=== PATIENT | female | born 1990 | race Caucasian/White ===

== ENCOUNTER 2016-09-10 10:05 | Inpatient (IN) | payer SELFPAY ==
[~2016-09-10] VITALS: Ht 182.9 cm; Wt 133.9 kg
[2016-09-10] MEDS ORDERED: LIDOCAINE 1% / SOD BICARB 8.4% 20 ML VIAL. IJ ONE (10:30)
--- NOTE | 2016-09-10 10:37 | PHYS DOC ---
Past Medical History Past Medical History: No Pertinent History Past Surgical History: Appendectomy Alcohol Use: Rarely Drug Use: Marijuana Adult General Chief Complaint Chief Complaint: ABSCESS HPI HPI Patient is a 25 year old female presents the emergency department stating that she has an abscess in her left upper thigh. She states that she's had these in the past in which they've had to open and drain them. She states she's had this for approximately one week. She states that it's the size of a golf ball. She denies any drainage or discharge coming from the site. She does state she's had some nausea feeling but denies any fever chills or vomiting. Patients tetanus is up to date. Review of Systems Review of Systems Constitutional: Denies fever or chills [] Eyes: Denies change in visual acuity, redness, or eye pain [] HENT: Denies nasal congestion or sore throat [] Respiratory: Denies cough or shortness of breath [] Cardiovascular: No additional information not addressed in HPI [] GI: Denies abdominal pain, nausea, vomiting, bloody stools or diarrhea [] : Denies dysuria or hematuria [] Musculoskeletal: Denies back pain or joint pain [] Integument: Denies rash or skin lesions. C/o abscess to the left upper inner thigh Neurologic: Denies headache, focal weakness or sensory changes [] Endocrine: Denies polyuria or polydipsia [] Current Medications Current Medications Current Medications Medications (Trade) Dose Ordered Sig/Franky Start Time Stop Time Status Last Admin Dose Admin Acetaminophen/ Hydrocodone Bitart (Lortab 5/325) 2 tab 1X ONCE 09/10/16 10:45 09/10/16 10:46 DC 09/10/16 10:46 2 TAB Clindamycin Phosphate 50 ml @ 100 mls/hr 1X ONCE 09/10/16 11:15 09/10/16 11:44 DC 09/10/16 11:47 100 MLS/HR Lidocaine/Sodium Bicarbonate (Buffered Lidocaine 1%) 20 ml 1X ONCE 09/10/16 10:30 09/10/16 10:31 DC 09/10/16 10:39 20 ML Allergies Allergies Allergies Coded Allergies Type Severity Reaction Last Updated Verified morphine Allergy Severe "freak out' 09/10/16 Yes Physical Exam Physical Exam Constitutional: Well developed, well nourished, no acute distress, non-toxic appearance. [] HENT: Normocephalic, atraumatic, bilateral external ears normal, oropharynx moist, no oral exudates, nose normal. [] Eyes: PERRLA, EOMI, conjunctiva normal, no discharge. [] Neck: Normal range of motion, no tenderness, supple, no stridor. [] Cardiovascular:Heart rate regular rhythm, no murmur [] Lungs & Thorax: Bilateral breath sounds clear to auscultation [] Skin: Warm, dry, no erythema, no rash. Golf ball size area that is red, tender without drainage or discharge. Induration noted to the left upper inner thigh. Back: No tenderness Extremities: No tenderness, no cyanosis, no clubbing, ROM intact, no edema. [] Neurologic: Alert and oriented X 3, normal motor function, normal sensory function, no focal deficits noted. [] Psychologic: Affect normal, judgement normal, mood normal. [] Current Patient Data Vital Signs Vital Signs Date Time Temp Pulse Resp B/P (MAP) Pulse Ox O2 Delivery O2 Flow Rate FiO2 09/10/16 10:10 97.6 111 20 99 Room Air 97.6 Lab Values Laboratory Tests Test 09/10/16 11:30 White Blood Count 8.8 x10^3/uL (4.0-11.0) Red Blood Count 4.72 x10^6/uL (3.50-5.40) Hemoglobin 14.2 g/dL (12.0-15.5) Hematocrit 42.0 % (36.0-47.0) Mean Corpuscular Volume 89 fL (79-100) Mean Corpuscular Hemoglobin 30 pg (25-35) Mean Corpuscular Hemoglobin Concent 34 g/dL (31-37) Red Cell Distribution Width 13.4 % (11.5-14.5) Platelet Count 179 x10^3/uL (140-400) Neutrophils (%) (Auto) 66 % (31-73) Lymphocytes (%) (Auto) 23 % (24-48) L Monocytes (%) (Auto) 6 % (0-9) Eosinophils (%) (Auto) 5 % (0-3) H Basophils (%) (Auto) 1 % (0-3) Neutrophils # (Auto) 5.8 x10^3uL (1.8-7.7) Lymphocytes # (Auto) 2.0 x10^3/uL (1.0-4.8) Monocytes # (Auto) 0.5 x10^3/uL (0.0-1.1) Eosinophils # (Auto) 0.4 x10^3/uL (0.0-0.7) Basophils # (Auto) 0.1 x10^3/uL (0.0-0.2) Sodium Level 141 mmol/L (136-145) Potassium Level 4.2 mmol/L (3.5-5.1) Chloride Level 106 mmol/L (98-107) Carbon Dioxide Level 27 mmol/L (21-32) Anion Gap 8 (6-14) Blood Urea Nitrogen 6 mg/dL (7-20) L Creatinine 0.8 mg/dL (0.6-1.0) Estimated GFR (Cockcroft-Gault) 88.9 BUN/Creatinine Ratio 8 (6-20) Glucose Level 103 mg/dL (70-99) H Calcium Level 9.0 mg/dL (8.5-10.1) Total Bilirubin 0.4 mg/dL (0.2-1.0) Aspartate Amino Transferase (AST) 18 U/L (15-37) Alanine Aminotransferase (ALT) 30 U/L (14-59) Alkaline Phosphatase 75 U/L (46-116) Total Protein 7.4 g/dL (6.4-8.2) Albumin 3.4 g/dL (3.4-5.0) Albumin/Globulin Ratio 0.9 (1.0-1.7) L Serum Test, Qualitative Negative (NEG) Laboratory Tests 09/10/16 11:30 Laboratory Tests 09/10/16 11:30 EKG EKG [] Radiology/Procedures Radiology/Procedures [][facility] [address] [place] [address] IMAGING REPORT Signed PATIENT: TROY ARANA ACCOUNT: [id number] : 1990 LOCATION: ER AGE: 25 SEX: F EXAM STATUS: REG ER ORD. PHYSICIAN: RILEY PADRON [employer] REASON: abscess left upper inner thigh PROCEDURE: EXT NON VASC LTD LEFT Ultrasound of the medial superior left thigh 09/10/2016 Clinical history: Focal swelling involving the medial superior left thigh. Concern for possible abscess. Technique: A real-time ultrasound examination of the superior medial left thigh soft tissues in the area of the patient's swelling was performed. Multiple images were obtained. Findings: Edema is seen throughout the visualized soft tissues of the superior medial left thigh. No well-defined fluid collection is seen to suggest evidence of an abscess. Impression: There is no sonographic evidence of an abscess. DICTATED and SIGNED BY: PETER RUBIO MD DATE: 09/10/16 1222 CC: RILEY PADRON APRN; NO PCP; NON,STAFF ~ Course & Med Decision Making Course & Med Decision Making Pertinent Labs and Imaging studies reviewed. (See chart for details) Ultrasound does not show an abscess. Spoke with Dr. powers in regards to patient being admitted into the hospital placed on clindamycin. He agrees at this time with the treatment option as the patient states that she cannot be compliant with medication regimen at home. [] Dragon Disclaimer Dragon Disclaimer This electronic medical record was generated, in whole or in part, using a voice recognition dictation system. Departure Departure Impression: Primary Impression: Cellulitis of left thigh Admitting Physician: Sherice Powers Condition: STABLE Incision and Drainage Incision and Drainage : Site: left upper inner thigh Blade Size: 11 I & D Procedure: betadine prep, sterile drapes applied Progress Left upper inner thigh injected with 5 ml 1% lidocaine buffered, Site was cleaned with betadine, incised with #11 blade with yellow chunks noted. Patient states she feels as though the area is deeper,. ultrasound ordered. RILEY PADRON APRN Sep 10, 2016 10:37
[2016-09-10] MEDS ORDERED: HYDROcodone/APAP 5/325MG 1 TAB TABLET PO ONE (10:45)
[2016-09-10] MEDS ORDERED: CLINDAMYCIN 600MG PREMIX 50 ML IV ONE (11:15)
[2016-09-10 11:47] LABS: BASO # 0.1 x10^3/uL (0.0-0.2); BASO % 1 % (0-3); EOS % 5 % (0-3); HEMOGLOBIN 14.2 g/dL (12.0-15.5); LYMPH % 23 % (24-48); MEAN CORPUSCULAR HEMOGLOBIN 30 pg (25-35); MEAN CORPUSCULAR HGB CONC 34 g/dL (31-37); MEAN CORPUSCULAR VOLUME 89 fL (79-100); MONO % 6 % (0-9); NEUT % 66 % (31-73); PLATELET COUNT 179 x10^3/uL (140-400); RED BLOOD COUNT 4.72 x10^6/uL (3.50-5.40); RED CELL DISTRIBUTION WIDTH 13.4 % (11.5-14.5); WHITE BLOOD COUNT 8.8 x10^3/uL (4.0-11.0)
[2016-09-10 11:51] LABS: CREATININE 0.8 mg/dL (0.6-1.0); GFR 88.9; POTASSIUM 4.2 mmol/L (3.5-5.1)
[2016-09-10 11:57] LABS: ALBUMIN 3.4 g/dL (3.4-5.0); ALBUMIN/GLOBULIN RATIO 0.9 (1.0-1.7); TOTAL BILIRUBIN 0.4 mg/dL (0.2-1.0); TOTAL PROTEIN 7.4 g/dL (6.4-8.2)
[2016-09-10 12:05] LABS: NEG OBC SER NEG; POS OBC SER POS
--- NOTE | 2016-09-10 12:27 | RAD ---
Ultrasound of the medial superior left thigh 09/10/2016 Clinical history: Focal swelling involving the medial superior left thigh. Concern for possible abscess. Technique: A real-time ultrasound examination of the superior medial left thigh soft tissues in the area of the patient's swelling was performed. Multiple images were obtained. Findings: Edema is seen throughout the visualized soft tissues of the superior medial left thigh. No well-defined fluid collection is seen to suggest evidence of an abscess. Impression: There is no sonographic evidence of an abscess.
--- NOTE | 2016-09-10 13:23 | ACF ---
Admission Forms Criteria CELLULITIS Clinical Indications for Admission to Inpatient Care (Place 'X' for any and all applicable criteria): Admission is indicated for ANY ONE of the following(1)(2)(3)(4)(5): [ ]I. Limb-threatening infection [ ]II. High-risk comorbid condition as indicated by ANY ONE of the following: [ ]a) Uncontrolled diabetes (eg, HbA1c greater than 10% (0.1)) [ ]b) Cirrhosis [ ]c) Neutropenia [ ]d) Asplenia [ ]e) Immunosuppression [ ]f) Symptomatic heart failure [ ]III. Failure of outpatient therapy as indicated by ALL of the following: [ ]a) Progression or no improvement after adequate trial (minimum of 48 hours, with longer period for stable lower extremity infection) [ ]b) Adequate antibiotic regimen as indicated by use of ANY ONE of the following: [ ]i) First-generation cephalosporin (e.g., cephalexin) [ ]ii) Antistaphylococcal penicillin (e.g., dicloxacillin) [ ]iii) Penicillin-allergic patient regimen (clindamycin, extended-spectrum fluoroquinolone, or doxycycline) [ ]iv) Resistant organism (eg, methicillin-resistant Staphylococcus aureus) regimen (6) [ ]c) Outpatient intravenous therapy regimen is not appropriate due to ANY ONE of the following. (7)(8)(9)(10): [ ]i) It was tried and was not successful (eg, progression of infection). [ ]ii) It is not available or cannot be arranged in a clinically appropriate time frame (e.g., the next day). [ ]iii) Clinical presentation (eg, acuity of infection, rapidity of progression, confirmed or suspected bacteremia) is judged to require ALL of the following: [ ]1) Immediate initiation of intravenous therapy ( eg, cannot wait for next day) [ ]2) Intensity of patient monitoring and observation (eg, vital sign measurement, checks for infection progression) that cannot be provided at other than inpatient level of care [ ]IV. Mental status changes [ ]V. Bacteremia [ ]. Hemodynamic instability [ ]VII. Suspected necrotizing soft tissue infection (e.g., gas in tissue)(11)( 12) [ ]VIII. Orbital infection (13)(14) [X]IX. Associated surgical procedure (e.g., abscess drainage, debridement) not amenable to outpatient, emergency department, or observation care [ ]X. Cutaneous gangrene [ ]XI. High fever (temperature greater than 39.5 degrees C (103.1 degrees F) (oral)) not responsive to outpatient, emergency department, or observation care therapy [ ]XIII. Inpatient admission required rather than observation care (Also use Cellulitis: Observation Care as appropriate) because of ANY ONE of the following : [ ]a) Periorbital or perineal infection that is severe or worsening [ ]b) Severe pain requiring acute inpatient management [ ]c) IV fluid to replace significant ongoing (e.g., for over 24 hours) losses (greater than 3L/m2 per day) [ ]d) Compartment syndrome monitoring (17) [ ]e) Strict or protective (eg, laminar flow) isolation [ ]f) Urgent debridement or skin grafting [ ]g) Bone or joint debridement [ ]h) Immediate inpatient surgery [ ]i) Other condition, treatment or monitoring requiring inpatient admission Extended stay beyond goal length of stay may be needed for (1)(18): [ ]a) Necrotizing soft tissue infection or fasciitis [ ]b) Gram-negative infection [ ]c) Methicillin-resistant Staphylococcal aureus (MRSA) infection [ ]d) Peripheral venous insufficiency with cellulitis [ ]e) Extensive edema [ ]f) Sepsis or continued Hemodynamic instability [ ]g) Continued high fever or mental status change [ ]h) Bacteremia [ ]i) Active serious comorbid conditions ( eg, heart failure, renal insufficiency) The original [employer] content created by [employer] has been revised. The portions of the content which have been revised are identified through the use of italic text or in bold, and [facility] has neither reviewed nor approved the modified material. All other unmodified content is copyright [facility] Please see references footnoted in the original [facility] edition 2016 Admission Criteria Met?: Yes MARAL BRIGHT Sep 10, 2016 13:23
[2016-09-10 14:00] VITALS: BP 128/62
[2016-09-10 15:00] VITALS: BP 128/62
[2016-09-10] MEDS: HYDROcodone/APAP 5/325MG 1 TAB TABLET PO PRN ×3 (15:35→23:49)
--- NOTE | 2016-09-10 17:46 | PDOC1 ---
History and Physical Date of Admission Date of Admission DATE: 09/10/16 TIME: 17:42 Identification/Chief Complaint Chief Complaint groin pain Problems: Source Source: Chart review, Patient History of Present Illness History of Present Illness Ms. Santo, is a 25 year old female, History of hidranitis suppurativa, admit from the the emergency department for small lesions and minimal sized abscess in her left upper thigh. History of prior, worse now in the hot weather, she feels too painful to walk, unable to sleep last night, pain 7/10 Patients tetanus is up to date. Past Medical History Past Medical History hidranitis Pulmonary: No pertinent hx GI: No pertinent hx Heme/Onc: No pertinent hx Hepatobiliary: No pertinent hx Psych: No pertinent hx Rheumatologic: No pertinent hx Family History Family History: No Significant Social History Smoke: <1 pack per day ALCOHOL: rare Drugs: None Current Problem List Problem List Problems Medical Problems: (1) Cellulitis of left thigh Status: Acute Problems: Current Medications Current Medications Current Medications Lidocaine/Sodium Bicarbonate (Buffered Lidocaine 1%) 20 ml 1X ONCE IJ Last administered on 09/10/16 10:39; Start 09/10/16 at 10:30; Stop 09/10/16 at 10:31 ; Status DC Acetaminophen/ Hydrocodone Bitart (Lortab 5/325) 2 tab 1X ONCE PO Last administered on 09/10/16 10:46; Start 09/10/16 at 10:45; Stop 09/10/16 at 10:46 ; Status DC Clindamycin Phosphate 50 ml @ 100 mls/hr 1X ONCE IV Last administered on 09/10 11:47; Start 09/10/16 at 11:15; Stop 09/10/16 at 11:44; Status DC Clindamycin Phosphate 50 ml @ 100 mls/hr Q8HRS IV ; Start 09/10/16 at 22:00 Acetaminophen/ Hydrocodone Bitart (Lortab 5/325) 1 tab Q4HRS PRN PO pain Last administered on 09/10/16 15:35; Start 09/10/16 at 13:00 Lidocaine (Lidoderm) 1 patch DAILY TD ; Start 09/11/16 at 21:00 Allergies Allergies: Coded Allergies: morphine (Verified Allergy, Severe, "freak out', 09/10/16) ROS General: No: Chills, Night Sweats, Fatigue, Malaise, Appetite, Other PSYCHOLOGICAL ROS: No: Anxiety, Behavioral Disorder, Concentration difficultie , Decreased libido, Depression, Disorientation, Hallucinations, Hostility, Irritablity, Memory difficulties, Mood Swings, Obsessive thoughts, Physical abuse, Sexual abuse, Sleep disturbances, Suicidal ideation, Other Eyes: No Blurry vision, No Decreased vision, No Double vision, No Dry eyes, No Excessive tearing, No Eye Pain, No Itchy Eyes, No Loss of vision, No Photophobia , No Scotomata, No Uses contacts, No Uses glasses, No Other HEENT: No: Heacaches, Visual Changes, Hearing change, Nasal congestion, Nasal discharge, Oral lesions, Sinus pain, Sore Throat, Epistaxis, Sneezing, Snoring, Tinnitus, Vertigo, Vocal changes, Other ALLERGY AND IMMUNOLOGY: No: Hives, Insect Bite Sensitivity, Itchy/Watery Eyes, Nasal Congestion, Post Nasal Drip, Seasonal Allergies, Other Cardiovascular: No Chest Pain, No Palpitations, No Orthopnea, No Paroxysmal Noc. Dyspnea, No Edema, No Lt Headedness, No Other Gastrointestinal: No Nausea, No Vomiting, No Abdominal Pain, No Diarrhea, No Constipation, No Melena, No Hematochezia, No Other Genitourinary: No Dysuria, No Frequency, No Incontinence, No Hematuria, No Retention, No Discharge, No Urgency, No Pain, No Flank Pain, No Other, No , No , No , No , No , No , No Skin: Yes Hair Changes, Yes Rash, Yes Skin Lesion Changes, Yes Acne, No Dry Skin, No Eczema, No Lumps, No Mole Changes, No Mottling, No Nail Changes, No Pruritus, No Other Physical Exam General: Alert, Oriented X3, Cooperative HEENT: Atraumatic, PERRLA Lungs: Clear to auscultation Abdomen: Normal bowel sounds, Soft Extremities: No clubbing, No edema Skin: Other (small hidranitus bumps to left groin, min abcess palpable) Neuro: Normal speech, Normal tone Vitals Vitals Vital Signs Date Time Temp Pulse Resp B/P (MAP) Pulse Ox O2 Delivery O2 Flow Rate FiO2 09/10/16 17:29 98 Room Air 09/10/16 15:00 98.3 85 18 128/62 (84) 98.3 Labs Labs Laboratory Tests Test 09/10/16 11:30 White Blood Count 8.8 x10^3/uL (4.0-11.0) Red Blood Count 4.72 x10^6/uL (3.50-5.40) Hemoglobin 14.2 g/dL (12.0-15.5) Hematocrit 42.0 % (36.0-47.0) Mean Corpuscular Volume 89 fL (79-100) Mean Corpuscular Hemoglobin 30 pg (25-35) Mean Corpuscular Hemoglobin Concent 34 g/dL (31-37) Red Cell Distribution Width 13.4 % (11.5-14.5) Platelet Count 179 x10^3/uL (140-400) Neutrophils (%) (Auto) 66 % (31-73) Lymphocytes (%) (Auto) 23 % (24-48) Monocytes (%) (Auto) 6 % (0-9) Eosinophils (%) (Auto) 5 % (0-3) Basophils (%) (Auto) 1 % (0-3) Neutrophils # (Auto) 5.8 x10^3uL (1.8-7.7) Lymphocytes # (Auto) 2.0 x10^3/uL (1.0-4.8) Monocytes # (Auto) 0.5 x10^3/uL (0.0-1.1) Eosinophils # (Auto) 0.4 x10^3/uL (0.0-0.7) Basophils # (Auto) 0.1 x10^3/uL (0.0-0.2) Sodium Level 141 mmol/L (136-145) Potassium Level 4.2 mmol/L (3.5-5.1) Chloride Level 106 mmol/L (98-107) Carbon Dioxide Level 27 mmol/L (21-32) Anion Gap 8 (6-14) Blood Urea Nitrogen 6 mg/dL (7-20) Creatinine 0.8 mg/dL (0.6-1.0) Estimated GFR (Cockcroft-Gault) 88.9 BUN/Creatinine Ratio 8 (6-20) Glucose Level 103 mg/dL (70-99) Calcium Level 9.0 mg/dL (8.5-10.1) Total Bilirubin 0.4 mg/dL (0.2-1.0) Aspartate Amino Transf (AST/SGOT) 18 U/L (15-37) Alanine Aminotransferase (ALT/SGPT) 30 U/L (14-59) Alkaline Phosphatase 75 U/L (46-116) Total Protein 7.4 g/dL (6.4-8.2) Albumin 3.4 g/dL (3.4-5.0) Albumin/Globulin Ratio 0.9 (1.0-1.7) Serum Test, Qualitative Negative (NEG) Laboratory Tests Test 09/10/16 11:30 White Blood Count 8.8 x10^3/uL (4.0-11.0) Red Blood Count 4.72 x10^6/uL (3.50-5.40) Hemoglobin 14.2 g/dL (12.0-15.5) Hematocrit 42.0 % (36.0-47.0) Mean Corpuscular Volume 89 fL (79-100) Mean Corpuscular Hemoglobin 30 pg (25-35) Mean Corpuscular Hemoglobin Concent 34 g/dL (31-37) Red Cell Distribution Width 13.4 % (11.5-14.5) Platelet Count 179 x10^3/uL (140-400) Neutrophils (%) (Auto) 66 % (31-73) Lymphocytes (%) (Auto) 23 % (24-48) Monocytes (%) (Auto) 6 % (0-9) Eosinophils (%) (Auto) 5 % (0-3) Basophils (%) (Auto) 1 % (0-3) Neutrophils # (Auto) 5.8 x10^3uL (1.8-7.7) Lymphocytes # (Auto) 2.0 x10^3/uL (1.0-4.8) Monocytes # (Auto) 0.5 x10^3/uL (0.0-1.1) Eosinophils # (Auto) 0.4 x10^3/uL (0.0-0.7) Basophils # (Auto) 0.1 x10^3/uL (0.0-0.2) Sodium Level 141 mmol/L (136-145) Potassium Level 4.2 mmol/L (3.5-5.1) Chloride Level 106 mmol/L (98-107) Carbon Dioxide Level 27 mmol/L (21-32) Anion Gap 8 (6-14) Blood Urea Nitrogen 6 mg/dL (7-20) Creatinine 0.8 mg/dL (0.6-1.0) Estimated GFR (Cockcroft-Gault) 88.9 BUN/Creatinine Ratio 8 (6-20) Glucose Level 103 mg/dL (70-99) Calcium Level 9.0 mg/dL (8.5-10.1) Total Bilirubin 0.4 mg/dL (0.2-1.0) Aspartate Amino Transf (AST/SGOT) 18 U/L (15-37) Alanine Aminotransferase (ALT/SGPT) 30 U/L (14-59) Alkaline Phosphatase 75 U/L (46-116) Total Protein 7.4 g/dL (6.4-8.2) Albumin 3.4 g/dL (3.4-5.0) Albumin/Globulin Ratio 0.9 (1.0-1.7) Serum Test, Qualitative Negative (NEG) VTE Prophylaxis Ordered VTE Prophylaxis Devices: No VTE Pharmacological Prophylaxi: No Assessment/Plan Assessment/Plan groin abcess concern for cellulitis, clinda obesity, BMI 39 tobaccoism, gum JARRETT BACK MD Sep 10, 2016 17:46
[2016-09-10 19:56] VITALS: BP 131/63
[2016-09-10] MEDS ORDERED: LIDOCAINE (700MG/PATCH) PATCH. TD SCH (21:00)
[2016-09-10] MEDS: NICOTINE POLACRILEX 2MG GUM PACKAGE of 12. BC PRN (21:55)
[2016-09-10] MEDS: CLINDAMYCIN 600MG PREMIX 50 ML IV SCH (21:55)
[2016-09-10 23:48] VITALS: BP 112/55
[2016-09-11] MEDS: HYDROcodone/APAP 5/325MG 1 TAB TABLET PO PRN ×5 (04:36→21:42)
[2016-09-11 04:45] LABS: BASO # 0.1 x10^3/uL (0.0-0.2); BASO % 1 % (0-3); EOS % 7 % (0-3); HEMATOCRIT 41.4 % (36.0-47.0); HEMOGLOBIN 13.6 g/dL (12.0-15.5); LYMPH # 3.3 x10^3/uL (1.0-4.8); LYMPH % 35 % (24-48); MEAN CORPUSCULAR HEMOGLOBIN 29 pg (25-35); MEAN CORPUSCULAR HGB CONC 33 g/dL (31-37); MEAN CORPUSCULAR VOLUME 89 fL (79-100); MONO % 7 % (0-9); NEUT % 50 % (31-73); PLATELET COUNT 182 x10^3/uL (140-400); RED BLOOD COUNT 4.65 x10^6/uL (3.50-5.40); RED CELL DISTRIBUTION WIDTH 13.3 % (11.5-14.5); WHITE BLOOD COUNT 9.3 x10^3/uL (4.0-11.0)
[2016-09-11 05:05] LABS: CALCIUM 8.7 mg/dL (8.5-10.1); CREATININE 0.8 mg/dL (0.6-1.0); GFR 88.9; POTASSIUM 3.6 mmol/L (3.5-5.1)
[2016-09-11] MEDS: CLINDAMYCIN 600MG PREMIX 50 ML IV SCH ×3 (05:55→21:41)
[2016-09-11 07:00] VITALS: BP 121/59
--- NOTE | 2016-09-11 10:07 | PDOC ---
PROGRESS NOTES Chief Complaint Chief Complaint groin abcess, minimal in size, unable to be lanced in the ER early cellulitis of groin area, on clindamycin obesity, BMI 39 tobaccoism, History of Present Illness History of Present Illness still having a lot of pain, she feels the small swollen areas are now more painful I will consult Gen surg to see if they can carmen or express to promote healing, ER staff was unable Vitals Vitals Vital Signs Date Time Temp Pulse Resp B/P (MAP) Pulse Ox O2 Delivery O2 Flow Rate FiO2 09/11/16 08:19 18 95 Room Air 09/11/16 07:00 97.7 81 121/59 (79) 97.7 Physical Exam General: Alert, Oriented X3, Cooperative Abdomen: Normal bowel sounds, Soft Extremities: No clubbing, No edema Skin: Other (small hidranitus bumps to left groin, min abcess palpable) Labs LABS Laboratory Tests Test 09/10/16 11:30 09/11/16 03:35 White Blood Count 8.8 x10^3/uL (4.0-11.0) 9.3 x10^3/uL (4.0-11.0) Red Blood Count 4.72 x10^6/uL (3.50-5.40) 4.65 x10^6/uL (3.50-5.40) Hemoglobin 14.2 g/dL (12.0-15.5) 13.6 g/dL (12.0-15.5) Hematocrit 42.0 % (36.0-47.0) 41.4 % (36.0-47.0) Mean Corpuscular Volume 89 fL (79-100) 89 fL (79-100) Mean Corpuscular Hemoglobin 30 pg (25-35) 29 pg (25-35) Mean Corpuscular Hemoglobin Concent 34 g/dL (31-37) 33 g/dL (31-37) Red Cell Distribution Width 13.4 % (11.5-14.5) 13.3 % (11.5-14.5) Platelet Count 179 x10^3/uL (140-400) 182 x10^3/uL (140-400) Neutrophils (%) (Auto) 66 % (31-73) 50 % (31-73) Lymphocytes (%) (Auto) 23 % (24-48) 35 % (24-48) Monocytes (%) (Auto) 6 % (0-9) 7 % (0-9) Eosinophils (%) (Auto) 5 % (0-3) 7 % (0-3) Basophils (%) (Auto) 1 % (0-3) 1 % (0-3) Neutrophils # (Auto) 5.8 x10^3uL (1.8-7.7) 4.6 x10^3uL (1.8-7.7) Lymphocytes # (Auto) 2.0 x10^3/uL (1.0-4.8) 3.3 x10^3/uL (1.0-4.8) Monocytes # (Auto) 0.5 x10^3/uL (0.0-1.1) 0.7 x10^3/uL (0.0-1.1) Eosinophils # (Auto) 0.4 x10^3/uL (0.0-0.7) 0.7 x10^3/uL (0.0-0.7) Basophils # (Auto) 0.1 x10^3/uL (0.0-0.2) 0.1 x10^3/uL (0.0-0.2) Sodium Level 141 mmol/L (136-145) 140 mmol/L (136-145) Potassium Level 4.2 mmol/L (3.5-5.1) 3.6 mmol/L (3.5-5.1) Chloride Level 106 mmol/L (98-107) 106 mmol/L (98-107) Carbon Dioxide Level 27 mmol/L (21-32) 25 mmol/L (21-32) Anion Gap 8 (6-14) 9 (6-14) Blood Urea Nitrogen 6 mg/dL (7-20) 9 mg/dL (7-20) Creatinine 0.8 mg/dL (0.6-1.0) 0.8 mg/dL (0.6-1.0) Estimated GFR (Cockcroft-Gault) 88.9 88.9 BUN/Creatinine Ratio 8 (6-20) Glucose Level 103 mg/dL (70-99) 120 mg/dL (70-99) Calcium Level 9.0 mg/dL (8.5-10.1) 8.7 mg/dL (8.5-10.1) Total Bilirubin 0.4 mg/dL (0.2-1.0) Aspartate Amino Transf (AST/SGOT) 18 U/L (15-37) Alanine Aminotransferase (ALT/SGPT) 30 U/L (14-59) Alkaline Phosphatase 75 U/L (46-116) Total Protein 7.4 g/dL (6.4-8.2) Albumin 3.4 g/dL (3.4-5.0) Albumin/Globulin Ratio 0.9 (1.0-1.7) Serum Test, Qualitative Negative (NEG) Assessment and Plan Assessmemt and Plan Problems Medical Problems: (1) Cellulitis of left thigh Status: Acute Problems: Comment Review of Relevant I have reviewed the following items yaya (where applicable) has been applied. Labs Laboratory Tests Test 09/10/16 11:30 09/11/16 03:35 White Blood Count 8.8 x10^3/uL (4.0-11.0) 9.3 x10^3/uL (4.0-11.0) Red Blood Count 4.72 x10^6/uL (3.50-5.40) 4.65 x10^6/uL (3.50-5.40) Hemoglobin 14.2 g/dL (12.0-15.5) 13.6 g/dL (12.0-15.5) Hematocrit 42.0 % (36.0-47.0) 41.4 % (36.0-47.0) Mean Corpuscular Volume 89 fL (79-100) 89 fL (79-100) Mean Corpuscular Hemoglobin 30 pg (25-35) 29 pg (25-35) Mean Corpuscular Hemoglobin Concent 34 g/dL (31-37) 33 g/dL (31-37) Red Cell Distribution Width 13.4 % (11.5-14.5) 13.3 % (11.5-14.5) Platelet Count 179 x10^3/uL (140-400) 182 x10^3/uL (140-400) Neutrophils (%) (Auto) 66 % (31-73) 50 % (31-73) Lymphocytes (%) (Auto) 23 % (24-48) 35 % (24-48) Monocytes (%) (Auto) 6 % (0-9) 7 % (0-9) Eosinophils (%) (Auto) 5 % (0-3) 7 % (0-3) Basophils (%) (Auto) 1 % (0-3) 1 % (0-3) Neutrophils # (Auto) 5.8 x10^3uL (1.8-7.7) 4.6 x10^3uL (1.8-7.7) Lymphocytes # (Auto) 2.0 x10^3/uL (1.0-4.8) 3.3 x10^3/uL (1.0-4.8) Monocytes # (Auto) 0.5 x10^3/uL (0.0-1.1) 0.7 x10^3/uL (0.0-1.1) Eosinophils # (Auto) 0.4 x10^3/uL (0.0-0.7) 0.7 x10^3/uL (0.0-0.7) Basophils # (Auto) 0.1 x10^3/uL (0.0-0.2) 0.1 x10^3/uL (0.0-0.2) Sodium Level 141 mmol/L (136-145) 140 mmol/L (136-145) Potassium Level 4.2 mmol/L (3.5-5.1) 3.6 mmol/L (3.5-5.1) Chloride Level 106 mmol/L (98-107) 106 mmol/L (98-107) Carbon Dioxide Level 27 mmol/L (21-32) 25 mmol/L (21-32) Anion Gap 8 (6-14) 9 (6-14) Blood Urea Nitrogen 6 mg/dL (7-20) 9 mg/dL (7-20) Creatinine 0.8 mg/dL (0.6-1.0) 0.8 mg/dL (0.6-1.0) Estimated GFR (Cockcroft-Gault) 88.9 88.9 BUN/Creatinine Ratio 8 (6-20) Glucose Level 103 mg/dL (70-99) 120 mg/dL (70-99) Calcium Level 9.0 mg/dL (8.5-10.1) 8.7 mg/dL (8.5-10.1) Total Bilirubin 0.4 mg/dL (0.2-1.0) Aspartate Amino Transf (AST/SGOT) 18 U/L (15-37) Alanine Aminotransferase (ALT/SGPT) 30 U/L (14-59) Alkaline Phosphatase 75 U/L (46-116) Total Protein 7.4 g/dL (6.4-8.2) Albumin 3.4 g/dL (3.4-5.0) Albumin/Globulin Ratio 0.9 (1.0-1.7) Serum Test, Qualitative Negative (NEG) Laboratory Tests Test 09/10/16 11:30 09/11/16 03:35 White Blood Count 8.8 x10^3/uL (4.0-11.0) 9.3 x10^3/uL (4.0-11.0) Red Blood Count 4.72 x10^6/uL (3.50-5.40) 4.65 x10^6/uL (3.50-5.40) Hemoglobin 14.2 g/dL (12.0-15.5) 13.6 g/dL (12.0-15.5) Hematocrit 42.0 % (36.0-47.0) 41.4 % (36.0-47.0) Mean Corpuscular Volume 89 fL (79-100) 89 fL (79-100) Mean Corpuscular Hemoglobin 30 pg (25-35) 29 pg (25-35) Mean Corpuscular Hemoglobin Concent 34 g/dL (31-37) 33 g/dL (31-37) Red Cell Distribution Width 13.4 % (11.5-14.5) 13.3 % (11.5-14.5) Platelet Count 179 x10^3/uL (140-400) 182 x10^3/uL (140-400) Neutrophils (%) (Auto) 66 % (31-73) 50 % (31-73) Lymphocytes (%) (Auto) 23 % (24-48) 35 % (24-48) Monocytes (%) (Auto) 6 % (0-9) 7 % (0-9) Eosinophils (%) (Auto) 5 % (0-3) 7 % (0-3) Basophils (%) (Auto) 1 % (0-3) 1 % (0-3) Neutrophils # (Auto) 5.8 x10^3uL (1.8-7.7) 4.6 x10^3uL (1.8-7.7) Lymphocytes # (Auto) 2.0 x10^3/uL (1.0-4.8) 3.3 x10^3/uL (1.0-4.8) Monocytes # (Auto) 0.5 x10^3/uL (0.0-1.1) 0.7 x10^3/uL (0.0-1.1) Eosinophils # (Auto) 0.4 x10^3/uL (0.0-0.7) 0.7 x10^3/uL (0.0-0.7) Basophils # (Auto) 0.1 x10^3/uL (0.0-0.2) 0.1 x10^3/uL (0.0-0.2) Sodium Level 141 mmol/L (136-145) 140 mmol/L (136-145) Potassium Level 4.2 mmol/L (3.5-5.1) 3.6 mmol/L (3.5-5.1) Chloride Level 106 mmol/L (98-107) 106 mmol/L (98-107) Carbon Dioxide Level 27 mmol/L (21-32) 25 mmol/L (21-32) Anion Gap 8 (6-14) 9 (6-14) Blood Urea Nitrogen 6 mg/dL (7-20) 9 mg/dL (7-20) Creatinine 0.8 mg/dL (0.6-1.0) 0.8 mg/dL (0.6-1.0) Estimated GFR (Cockcroft-Gault) 88.9 88.9 BUN/Creatinine Ratio 8 (6-20) Glucose Level 103 mg/dL (70-99) 120 mg/dL (70-99) Calcium Level 9.0 mg/dL (8.5-10.1) 8.7 mg/dL (8.5-10.1) Total Bilirubin 0.4 mg/dL (0.2-1.0) Aspartate Amino Transf (AST/SGOT) 18 U/L (15-37) Alanine Aminotransferase (ALT/SGPT) 30 U/L (14-59) Alkaline Phosphatase 75 U/L (46-116) Total Protein 7.4 g/dL (6.4-8.2) Albumin 3.4 g/dL (3.4-5.0) Albumin/Globulin Ratio 0.9 (1.0-1.7) Serum Test, Qualitative Negative (NEG) Medications Current Medications Lidocaine/Sodium Bicarbonate (Buffered Lidocaine 1%) 20 ml 1X ONCE IJ Last administered on 09/10/16 10:39; Start 09/10/16 at 10:30; Stop 09/10/16 at 10:31 ; Status DC Acetaminophen/ Hydrocodone Bitart (Lortab 5/325) 2 tab 1X ONCE PO Last administered on 09/10/16 10:46; Start 09/10/16 at 10:45; Stop 09/10/16 at 10:46 ; Status DC Clindamycin Phosphate 50 ml @ 100 mls/hr 1X ONCE IV Last administered on 09/10 11:47; Start 09/10/16 at 11:15; Stop 09/10/16 at 11:44; Status DC Clindamycin Phosphate 50 ml @ 100 mls/hr Q8HRS IV Last administered on 05:55; Start 09/10/16 at 22:00 Acetaminophen/ Hydrocodone Bitart (Lortab 5/325) 1 tab Q4HRS PRN PO pain Last administered on 09/11/16 08:19; Start 09/10/16 at 13:00 Lidocaine (Lidoderm) 1 patch DAILY TD ; Start 09/11/16 at 21:00; Stop 09/11/16 at 21:00; Status DC Nicotine Polacrilex (Nicorette Gum) 1 each PRN Q1HR PRN BC SMOKING CESSATION Last administered on 09/10/16 21:55; Start 09/10/16 at 17:45 Lidocaine (Lidoderm) 1 patch QHS TD Last administered on 09/10/16 21:56; Start 09/10/16 at 21:00 Vitals/I & O Vital Sign - Last 24 Hours 09/10/16 09/10/16 09/10/16 09/10/16 10:10 13:38 14:00 14:05 Temp 97.6 98.3 97.6 98.3 Pulse 111 85 85 Resp 20 14 18 B/P (MAP) 126/54 (78) 128/62 (84) Pulse Ox 99 98 98 O2 Delivery Room Air Room Air Room Air Room Air 09/10/16 09/10/16 09/10/16 09/10/16 15:00 15:35 19:52 19:56 Temp 98.3 98.2 98.3 98.2 Pulse 85 96 Resp 18 18 18 B/P (MAP) 128/62 (84) 131/63 (85) Pulse Ox 98 98 98 97 O2 Delivery Room Air Room Air Room Air Room Air 09/10/16 09/10/16 09/10/16 09/10/16 20:00 20:52 23:48 23:49 Temp 98.5 98.5 Pulse 94 Resp 18 18 B/P (MAP) 112/55 (74) Pulse Ox 96 98 96 O2 Delivery Room Air Room Air Room Air 09/11/16 09/11/16 09/11/16 09/11/16 00:49 03:10 04:36 05:36 Resp 20 20 Pulse Ox 96 O2 Delivery Room Air Room Air Room Air 09/11/16 09/11/16 09/11/16 07:00 08:00 08:19 Temp 97.7 97.7 Pulse 81 Resp 18 18 B/P (MAP) 121/59 (79) Pulse Ox 95 95 O2 Delivery Room Air Room Air Room Air Intake and Output 09/10/16 09/10/16 09/11/16 15:00 23:00 07:00 Intake Total 50 ml 220 ml 700 ml Balance 50 ml 220 ml 700 ml JARRETT BACK MD Sep 11, 2016 10:06
[2016-09-11] MEDS ORDERED: LIDOCAINE 2% JELLY 6ML IN APPLICATOR. MM ONE (10:15)
[2016-09-11 10:49] VITALS: BP 121/77
--- NOTE | 2016-09-11 11:47 | PDOC ---
SURGICAL PROGRESS NOTE Subjective 25 yo F with hidradenitis with left groin cellulitis no obvious abscess by US or PE agree with abx and local wound care Thanks for consult! [id number] Vital Signs Vital Signs Date Time Temp Pulse Resp B/P (MAP) Pulse Ox O2 Delivery O2 Flow Rate FiO2 09/11/16 10:49 97.9 87 18 121/77 (92) 98 Room Air 97.9 I&O Intake and Output 09/11/16 07:00 Intake Total 970 ml Balance 970 ml Intake Oral 920 ml IV Total 50 ml # Voids 7 Labs Laboratory Tests Test 09/10/16 11:30 09/11/16 03:35 White Blood Count 8.8 x10^3/uL (4.0-11.0) 9.3 x10^3/uL (4.0-11.0) Red Blood Count 4.72 x10^6/uL (3.50-5.40) 4.65 x10^6/uL (3.50-5.40) Hemoglobin 14.2 g/dL (12.0-15.5) 13.6 g/dL (12.0-15.5) Hematocrit 42.0 % (36.0-47.0) 41.4 % (36.0-47.0) Mean Corpuscular Volume 89 fL (79-100) 89 fL (79-100) Mean Corpuscular Hemoglobin 30 pg (25-35) 29 pg (25-35) Mean Corpuscular Hemoglobin Concent 34 g/dL (31-37) 33 g/dL (31-37) Red Cell Distribution Width 13.4 % (11.5-14.5) 13.3 % (11.5-14.5) Platelet Count 179 x10^3/uL (140-400) 182 x10^3/uL (140-400) Neutrophils (%) (Auto) 66 % (31-73) 50 % (31-73) Lymphocytes (%) (Auto) 23 % (24-48) 35 % (24-48) Monocytes (%) (Auto) 6 % (0-9) 7 % (0-9) Eosinophils (%) (Auto) 5 % (0-3) 7 % (0-3) Basophils (%) (Auto) 1 % (0-3) 1 % (0-3) Neutrophils # (Auto) 5.8 x10^3uL (1.8-7.7) 4.6 x10^3uL (1.8-7.7) Lymphocytes # (Auto) 2.0 x10^3/uL (1.0-4.8) 3.3 x10^3/uL (1.0-4.8) Monocytes # (Auto) 0.5 x10^3/uL (0.0-1.1) 0.7 x10^3/uL (0.0-1.1) Eosinophils # (Auto) 0.4 x10^3/uL (0.0-0.7) 0.7 x10^3/uL (0.0-0.7) Basophils # (Auto) 0.1 x10^3/uL (0.0-0.2) 0.1 x10^3/uL (0.0-0.2) Sodium Level 141 mmol/L (136-145) 140 mmol/L (136-145) Potassium Level 4.2 mmol/L (3.5-5.1) 3.6 mmol/L (3.5-5.1) Chloride Level 106 mmol/L (98-107) 106 mmol/L (98-107) Carbon Dioxide Level 27 mmol/L (21-32) 25 mmol/L (21-32) Anion Gap 8 (6-14) 9 (6-14) Blood Urea Nitrogen 6 mg/dL (7-20) 9 mg/dL (7-20) Creatinine 0.8 mg/dL (0.6-1.0) 0.8 mg/dL (0.6-1.0) Estimated GFR (Cockcroft-Gault) 88.9 88.9 BUN/Creatinine Ratio 8 (6-20) Glucose Level 103 mg/dL (70-99) 120 mg/dL (70-99) Calcium Level 9.0 mg/dL (8.5-10.1) 8.7 mg/dL (8.5-10.1) Total Bilirubin 0.4 mg/dL (0.2-1.0) Aspartate Amino Transf (AST/SGOT) 18 U/L (15-37) Alanine Aminotransferase (ALT/SGPT) 30 U/L (14-59) Alkaline Phosphatase 75 U/L (46-116) Total Protein 7.4 g/dL (6.4-8.2) Albumin 3.4 g/dL (3.4-5.0) Albumin/Globulin Ratio 0.9 (1.0-1.7) Serum Test, Qualitative Negative (NEG) Laboratory Tests Test 09/11/16 03:35 White Blood Count 9.3 x10^3/uL (4.0-11.0) Red Blood Count 4.65 x10^6/uL (3.50-5.40) Hemoglobin 13.6 g/dL (12.0-15.5) Hematocrit 41.4 % (36.0-47.0) Mean Corpuscular Volume 89 fL (79-100) Mean Corpuscular Hemoglobin 29 pg (25-35) Mean Corpuscular Hemoglobin Concent 33 g/dL (31-37) Red Cell Distribution Width 13.3 % (11.5-14.5) Platelet Count 182 x10^3/uL (140-400) Neutrophils (%) (Auto) 50 % (31-73) Lymphocytes (%) (Auto) 35 % (24-48) Monocytes (%) (Auto) 7 % (0-9) Eosinophils (%) (Auto) 7 % (0-3) Basophils (%) (Auto) 1 % (0-3) Neutrophils # (Auto) 4.6 x10^3uL (1.8-7.7) Lymphocytes # (Auto) 3.3 x10^3/uL (1.0-4.8) Monocytes # (Auto) 0.7 x10^3/uL (0.0-1.1) Eosinophils # (Auto) 0.7 x10^3/uL (0.0-0.7) Basophils # (Auto) 0.1 x10^3/uL (0.0-0.2) Sodium Level 140 mmol/L (136-145) Potassium Level 3.6 mmol/L (3.5-5.1) Chloride Level 106 mmol/L (98-107) Carbon Dioxide Level 25 mmol/L (21-32) Anion Gap 9 (6-14) Blood Urea Nitrogen 9 mg/dL (7-20) Creatinine 0.8 mg/dL (0.6-1.0) Estimated GFR (Cockcroft-Gault) 88.9 Glucose Level 120 mg/dL (70-99) Calcium Level 8.7 mg/dL (8.5-10.1) Problem List Problems Medical Problems: (1) Cellulitis of left thigh Status: Acute Problems: HANSEL CARTER MD Sep 11, 2016 11:47
[2016-09-11 15:00] VITALS: BP 125/53
[2016-09-11] MEDS ORDERED: LIDOCAINE (700MG/PATCH) PATCH. TD SCH (21:00)
[2016-09-11] MEDS: NICOTINE POLACRILEX 2MG GUM PACKAGE of 12. BC PRN (21:44)
[2016-09-11 23:40] VITALS: BP 142/77
[2016-09-12] VITALS (10 sets, daily range): BP systolic 113–140; BP diastolic 44–76
[2016-09-12] MEDS: HYDROcodone/APAP 5/325MG 1 TAB TABLET PO PRN ×3 (01:53→14:31)
--- NOTE | 2016-09-12 05:07 | CONS ---
DATE OF CONSULTATION: 09/11/2016 REFERRING PHYSICIANS: Dr. Sherice Powers, Ms. Adilene Bush. Thank you for the consult. CHIEF COMPLAINT: Left arm pain. DIAGNOSES: Left groin cellulitis, history of hidradenitis. HISTORY OF PRESENT ILLNESS: This is a 25-year-old female with a history of hidradenitis of the groin since puberty, reports multiple previous episodes of draining abscesses in her left groin area. She presents with a large one yesterday morning. It has grown to the size of a golf ball and she reports pain with walking with this. She was seen in the Emergency Room, admitted to the hospital for evaluation. She does report feeling persistent pain, but notes decreased swelling. Attempts at draining this in the Emergency Room last night were unsuccessful and an ultrasound did not demonstrate an obvious abscess. She is seen in her hospital room accompanied by her and sons. ALLERGIES: SHE HAS AN ALLERGY TO MORPHINE. PAST MEDICAL HISTORY: Obesity. PAST SURGICAL HISTORY: Appendectomy. SOCIAL HISTORY: Positive for marijuana. REVIEW OF SYSTEMS: All systems reviewed and negative except for HPI. PHYSICAL EXAMINATION: GENERAL: Well-developed, obese female, in no obvious distress. VITAL SIGNS: She is afebrile. Vital signs within normal limits. HEENT: Normocephalic, atraumatic. Wears glasses, no icteric sclerae. Oropharynx clear. No mucosal lesions. NECK: Supple. Trachea midline. CHEST: Bilateral chest excursion. ABDOMEN: Soft, obese, nondistended, nontender to palpation. EXTREMITIES: On her left groin area, she has evidence of chronic hidradenitis with scarring, appears to be an area of induration and erythema in the medial posterior aspect. No obvious drainage with this. Small wound consistent with attempted I and D. No obvious fluctuant area. LABORATORY DATA: White blood cell count is normal in appearance, 9.3. Chemistries demonstrated mildly elevated glucose, 120. An ultrasound of this area last night demonstrated no sonographic evidence of abscess. There is edema throughout the soft tissues. IMPRESSION AND RECOMMENDATIONS: This is a 25-year-old female with left groin cellulitis, no obvious abscess at this time in the setting of chronic hidradenitis. I agree with the use of antibiotics. We would like to consult the wound care team for evaluation and outpatient followup. The patient does appear to be somewhat frustrated with the thought that there is not a surgical option currently. Given the physical exam findings and ultrasound findings, I feel that attempt to drainage will be unsuccessful; however, we will have the wound care team evaluate and there may be some topical wound care elements that may be helpful and ideally she could be discharged home, which is her preference and follow up in the wound care center. I will be available for surgical intervention. Thank you for allowing participation in the care of this pleasant patient. HANSEL CARTER MD DR: ABI/dipika JOB#: [id number] / [id number] ADILENE Soliz APRN, IRA MD MTDD
[2016-09-12] MEDS: CLINDAMYCIN 600MG PREMIX 50 ML IV SCH ×3 (05:55→22:24)
[2016-09-12] MEDS ORDERED: LIDOCAINE 2% PF Vial for OR 5 ML VIAL. ONE (12:05)
[2016-09-12] MEDS ORDERED: ONDANSETRON PF 4 MG/2 ML VIAL. ONE ×2 (12:05→12:43)
[2016-09-12] MEDS ORDERED: DEXAMETHASONE SOD PHOS 20 MG/5 ML VIAL. ONE ×2 (12:05→12:43)
[2016-09-12] MEDS ORDERED: PROPOFOL 20 ML IV ONE (12:05)
[2016-09-12] MEDS ORDERED: fentaNYL PF VIAL 100 MCG/2 ML VIAL ONE (12:06)
[2016-09-12] MEDS ORDERED: IV RINGERS,LACTATED 1000ML 1,000 ML IV ONE (12:15)
[2016-09-12] MEDS ORDERED: PHENYLEPHRINE in 0.9% NACL PF 1 MG/10 ML DISP.SYRIN. IV ONE (12:26)
--- NOTE | 2016-09-12 12:29 | PDOC ---
SURGICAL PROGRESS NOTE Subjective 25 yo F with left groin hydradenitis TO OR for debridement R/B/A d/w pt and pt's SO d/w wound care yesterday [facility] reviewed Vital Signs Vital Signs Date Time Temp Pulse Resp B/P (MAP) Pulse Ox O2 Delivery O2 Flow Rate FiO2 09/12/16 12:07 98.0 93 12 116/65 97 Room Air 98.0 I&O Intake and Output 09/12/16 07:00 Intake Total 950 ml Balance 950 ml Intake Oral 950 ml # Voids 7 Labs Laboratory Tests Test 09/11/16 03:35 White Blood Count 9.3 x10^3/uL (4.0-11.0) Red Blood Count 4.65 x10^6/uL (3.50-5.40) Hemoglobin 13.6 g/dL (12.0-15.5) Hematocrit 41.4 % (36.0-47.0) Mean Corpuscular Volume 89 fL (79-100) Mean Corpuscular Hemoglobin 29 pg (25-35) Mean Corpuscular Hemoglobin Concent 33 g/dL (31-37) Red Cell Distribution Width 13.3 % (11.5-14.5) Platelet Count 182 x10^3/uL (140-400) Neutrophils (%) (Auto) 50 % (31-73) Lymphocytes (%) (Auto) 35 % (24-48) Monocytes (%) (Auto) 7 % (0-9) Eosinophils (%) (Auto) 7 % (0-3) Basophils (%) (Auto) 1 % (0-3) Neutrophils # (Auto) 4.6 x10^3uL (1.8-7.7) Lymphocytes # (Auto) 3.3 x10^3/uL (1.0-4.8) Monocytes # (Auto) 0.7 x10^3/uL (0.0-1.1) Eosinophils # (Auto) 0.7 x10^3/uL (0.0-0.7) Basophils # (Auto) 0.1 x10^3/uL (0.0-0.2) Sodium Level 140 mmol/L (136-145) Potassium Level 3.6 mmol/L (3.5-5.1) Chloride Level 106 mmol/L (98-107) Carbon Dioxide Level 25 mmol/L (21-32) Anion Gap 9 (6-14) Blood Urea Nitrogen 9 mg/dL (7-20) Creatinine 0.8 mg/dL (0.6-1.0) Estimated GFR (Cockcroft-Gault) 88.9 Glucose Level 120 mg/dL (70-99) Calcium Level 8.7 mg/dL (8.5-10.1) Problem List Problems Medical Problems: (1) Cellulitis of left thigh Status: Acute Problems: HANSEL CARTER MD Sep 12, 2016 12:29
[2016-09-12] MEDS ORDERED: MEPERIDINE PF 25 MG/ML VIAL. IV PRN (12:30)
[2016-09-12] MEDS ORDERED: PROCHLORPERAZINE 10 MG/2 ML VIAL. IV PRN (12:30)
[2016-09-12] MEDS ORDERED: diphenhydrAMINE 50 MG/ML VIAL IV PRN (12:30)
[2016-09-12] MEDS ORDERED: HYDROmorphone 2 MG/ML VIAL IV PRN (12:30)
[2016-09-12] MEDS ORDERED: ONDANSETRON PF 4 MG/2 ML VIAL. IV PRN (13:15)
[2016-09-12] MEDS ORDERED: 0.9 % SODIUM CHLORIDE 10 ML DISP.SYRIN. IV PRN (13:15)
--- NOTE | 2016-09-12 13:18 | PDOC ---
BRIEF OPERATIVE NOTE Pre-Op Diagnosis hydraadenitis, left groin cellulitis Post-Op Diagnosis same Procedure Performed excisional debridement, drainage of left groin fistula/abscess Surgeon Stuart Anesthesia Type: General Blood Loss min Specimens Obtained debridement skin Findings left groin nodule Complications none Additional Remarks [id number] HANSEL CARTER MD Sep 12, 2016 13:18
[2016-09-12] MEDS: fentaNYL PF VIAL 100 MCG/2 ML VIAL IV PRN ×2 (13:22→13:31)
[2016-09-12] MEDS: HYDROmorphone 2 MG/ML VIAL IVP PRN ×4 (15:10→23:40)
--- NOTE | 2016-09-12 16:05 | PDOC ---
PROGRESS NOTES Chief Complaint Chief Complaint groin abcess, minimal in size, unable to be lanced in the ER early cellulitis of groin area, on clindamycin obesity, BMI 39 tobaccoism, History of Present Illness History of Present Illness to OR today by gen surg cont pain control as able Vitals Vitals Vital Signs Date Time Temp Pulse Resp B/P (MAP) Pulse Ox O2 Delivery O2 Flow Rate FiO2 09/12/16 15:52 96 Nasal Cannula 2.0 09/12/16 15:10 20 09/12/16 14:11 97.7 91 113/56 (75) 97.7 Physical Exam General: Alert, Oriented X3, Cooperative Abdomen: Soft Extremities: No clubbing Skin: Other (small hidranitus bumps to left groin, min abcess palpable) Assessment and Plan Assessmemt and Plan Problems Medical Problems: (1) Cellulitis of left thigh Status: Acute Problems: Comment Review of Relevant I have reviewed the following items yaya (where applicable) has been applied. Labs Laboratory Tests Test 09/11/16 03:35 White Blood Count 9.3 x10^3/uL (4.0-11.0) Red Blood Count 4.65 x10^6/uL (3.50-5.40) Hemoglobin 13.6 g/dL (12.0-15.5) Hematocrit 41.4 % (36.0-47.0) Mean Corpuscular Volume 89 fL (79-100) Mean Corpuscular Hemoglobin 29 pg (25-35) Mean Corpuscular Hemoglobin Concent 33 g/dL (31-37) Red Cell Distribution Width 13.3 % (11.5-14.5) Platelet Count 182 x10^3/uL (140-400) Neutrophils (%) (Auto) 50 % (31-73) Lymphocytes (%) (Auto) 35 % (24-48) Monocytes (%) (Auto) 7 % (0-9) Eosinophils (%) (Auto) 7 % (0-3) Basophils (%) (Auto) 1 % (0-3) Neutrophils # (Auto) 4.6 x10^3uL (1.8-7.7) Lymphocytes # (Auto) 3.3 x10^3/uL (1.0-4.8) Monocytes # (Auto) 0.7 x10^3/uL (0.0-1.1) Eosinophils # (Auto) 0.7 x10^3/uL (0.0-0.7) Basophils # (Auto) 0.1 x10^3/uL (0.0-0.2) Sodium Level 140 mmol/L (136-145) Potassium Level 3.6 mmol/L (3.5-5.1) Chloride Level 106 mmol/L (98-107) Carbon Dioxide Level 25 mmol/L (21-32) Anion Gap 9 (6-14) Blood Urea Nitrogen 9 mg/dL (7-20) Creatinine 0.8 mg/dL (0.6-1.0) Estimated GFR (Cockcroft-Gault) 88.9 Glucose Level 120 mg/dL (70-99) Calcium Level 8.7 mg/dL (8.5-10.1) Microbiology 09/12/16 Gram Stain - Final, Complete Medications Current Medications Lidocaine/Sodium Bicarbonate (Buffered Lidocaine 1%) 20 ml 1X ONCE IJ Last administered on 09/10/16 10:39; Start 09/10/16 at 10:30; Stop 09/10/16 at 10:31 ; Status DC Acetaminophen/ Hydrocodone Bitart (Lortab 5/325) 2 tab 1X ONCE PO Last administered on 09/10/16 10:46; Start 09/10/16 at 10:45; Stop 09/10/16 at 10:46 ; Status DC Clindamycin Phosphate 50 ml @ 100 mls/hr 1X ONCE IV Last administered on 09/10 11:47; Start 09/10/16 at 11:15; Stop 09/10/16 at 11:44; Status DC Clindamycin Phosphate 50 ml @ 100 mls/hr Q8HRS IV Last administered on 12:49; Start 09/10/16 at 22:00 Acetaminophen/ Hydrocodone Bitart (Lortab 5/325) 1 tab Q4HRS PRN PO pain Last administered on 09/11/16 12:54; Start 09/10/16 at 13:00 Lidocaine (Lidoderm) 1 patch DAILY TD ; Start 09/11/16 at 21:00; Stop 09/11/16 at 21:00; Status DC Nicotine Polacrilex (Nicorette Gum) 1 each PRN Q1HR PRN BC SMOKING CESSATION Last administered on 09/11/16 21:44; Start 09/10/16 at 17:45 Lidocaine (Lidoderm) 1 patch QHS TD Last administered on 09/10/16 21:56; Start 09/10/16 at 21:00; Stop 09/11/16 at 10:04; Status DC Lidocaine HCl (Glydo (Lidocaine) Jelly) 1 serenity 1X ONCE MM ; Start 09/11/16 at 10 :15; Stop 09/11/16 at 10:16; Status DC Acetaminophen/ Hydrocodone Bitart (Lortab 5/325) 2 tab PRN Q4HRS PRN PO PAIN Last administered on 09/12/16 14:31; Start 09/11/16 at 13:30 Lorazepam (Ativan) 1 mg PRN Q8HRS PRN IV ANXIETY / AGITATION Last administered on 09/12/16 14:26; Start 09/11/16 at 15:45 Dexamethasone Sodium Phosphate (Decadron) 20 mg STK-MED ONCE .ROUTE ; Start at 12:05; Stop 09/12/16 at 12:06; Status DC Ondansetron HCl (Zofran) 4 mg STK-MED ONCE .ROUTE ; Start 09/12/16 at 12:05; Stop 09/12/16 at 12:06; Status DC Propofol 20 ml @ As Directed STK-MED ONCE IV ; Start 09/12/16 at 12:05; Stop at 12:06; Status DC Lidocaine HCl (Lidocaine Pf 2% Vial) 5 ml STK-MED ONCE .ROUTE ; Start 09/12/16 at 12:05; Stop 09/12/16 at 12:06; Status DC Fentanyl Citrate (Fentanyl 2ml Vial) 100 mcg STK-MED ONCE .ROUTE ; Start at 12:06; Stop 09/12/16 at 12:07; Status DC Ringer's Solution 1,000 ml @ 75 mls/hr 1X ONCE IV Last administered on 12:11; Start 09/12/16 at 12:15; Stop 09/13/16 at 01:34 Phenylephrine HCl 1 mg STK-MED ONCE IV ; Start 09/12/16 at 12:26; Stop 09/12/16 at 12:27; Status DC Fentanyl Citrate (Fentanyl 2ml Vial) 50 mcg PRN Q5MIN PRN IV Acute Pain Last administered on 09/12/16 13:31; Start 09/12/16 at 12:30; Stop 09/13/16 at 12:29 Hydromorphone HCl (Dilaudid) 0.4 mg PRN Q10MIN PRN IV Moderate to severe pain; Start 09/12/16 at 12:30; Stop 09/13/16 at 12:29 Meperidine HCl (Demerol) 12.5 mg PRN Q5MIN PRN IV SHIVERING; Start 09/12/16 at 12:30; Stop 09/13/16 at 12:29 Prochlorperazine Edisylate (Compazine) 5 mg PRN Q6HRS PRN IV Nausea/Vomiting, 1st Choice; Start 09/12/16 at 12:30; Stop 09/13/16 at 12:29 Diphenhydramine HCl (Benadryl) 12.5 mg PRN Q2HR PRN IV ITCHING; Start 09/12/16 at 12:30; Stop 09/13/16 at 12:29 Ondansetron HCl (Zofran) 4 mg STK-MED ONCE .ROUTE ; Start 09/12/16 at 12:43; Stop 09/12/16 at 12:44; Status DC Dexamethasone Sodium Phosphate (Decadron) 20 mg STK-MED ONCE .ROUTE ; Start at 12:43; Stop 09/12/16 at 12:44; Status DC Sodium Chloride (Normal Saline Flush) 3 ml QSHIFT PRN IV AFTER MEDS AND BLOOD DRAWS; Start 09/12/16 at 13:15 Senna/Docusate Sodium (Senna Plus) 1 tab BID PO ; Start 09/12/16 at 21:00 Ondansetron HCl (Zofran) 4 mg PRN Q6HRS PRN IV NAUESA, 1ST CHOICE; Start at 13:15 Lorazepam (Ativan) 1 mg 1X ONCE IV Last administered on 09/12/16 13:38; Start 09/12/16 at 13:45; Stop 09/12/16 at 13:46; Status DC Hydromorphone HCl (Dilaudid) 0.2 mg PRN Q1HR PRN IVP PAIN Last administered on 09/12/16t 15:10; Start 09/12/16 at 15:00 Vitals/I & O Vital Sign - Last 24 Hours 09/11/16 09/11/16 09/11/16 09/11/16 17:35 18:35 20:00 23:40 Temp 98.1 98.1 Pulse 97 Resp 22 20 16 B/P (MAP) 142/77 (98) Pulse Ox 98 95 O2 Delivery Room Air Room Air Room Air 09/12/16 09/12/16 09/12/16 09/12/16 03:10 07:51 07:59 09:32 Temp 97.7 97.7 Pulse 88 91 Resp 16 22 16 B/P (MAP) 123/55 (77) 125/58 (80) Pulse Ox 95 97 O2 Delivery Room Air Room Air Room Air Room Air 09/12/16 09/12/16 09/12/16 09/12/16 10:37 12:07 13:11 13:11 Temp 97.9 98.0 97.5 97.9 98.0 97.5 Pulse 102 93 92 Resp 20 12 18 B/P (MAP) 138/69 (92) 116/65 136/67 Pulse Ox 96 97 100 O2 Delivery Room Air Room Air Mask Simple Mask O2 Flow Rate 10 10 09/12/16 09/12/16 09/12/16 09/12/16 13:26 13:41 13:56 14:11 Temp 97.7 97.7 Pulse 81 90 93 91 Resp 26 12 14 20 B/P (MAP) 110/29 144/70 119/75 113/56 (75) Pulse Ox 91 98 96 96 O2 Delivery Room Air Nasal Cannula Nasal Cannula Room Air O2 Flow Rate 2 2 09/12/16 09/12/16 09/12/16 09/12/16 14:31 15:10 15:52 15:52 Resp 22 20 Pulse Ox 96 96 O2 Delivery Nasal Cannula Nasal Cannula O2 Flow Rate 2.0 2.0 Intake and Output 09/11/16 09/11/16 09/12/16 15:00 23:00 07:00 Intake Total 600 ml 350 ml Balance 600 ml 350 ml JARRETT BACK MD Sep 12, 2016 16:05
[2016-09-12] MEDS: NICOTINE POLACRILEX 2MG GUM PACKAGE of 12. BC PRN (16:30)
--- NOTE | 2016-09-12 19:38 | OP ---
DATE OF SURGERY: 09/12/2016 REFERRING PHYSICIAN: Dr. Sherice Powers. Thank you for this consult. PREOPERATIVE DIAGNOSIS: Left groin hidradenitis cellulitis/abscess. POSTOPERATIVE DIAGNOSIS: Left groin hidradenitis cellulitis/abscess. PROCEDURE: Excisional debridement of left groin abscess/fistula. SURGEON: Peter Carter MD ESTIMATED BLOOD LOSS: Minimal. COMPLICATIONS: None. INDICATIONS: A 25-year-old female with longstanding history of hidradenitis presents with a painful left groin. She reports chronic problems with this. There was some improvement with previous incision and drainage. This is not spontaneously drained. She was noted to have a large complex (2 cm) with draining pus. Subsequently, it was felt the patient best be served by debridement of this. The patient and the patient's significant other were informed of the risks, benefits, and alternatives to procedure, risks including but not limited to bleeding, infection, damage to surrounding structures, risk of anesthesia. The patient and the patient's family appeared to understand, and their insightful questions were answered, and they agreed to proceed. DESCRIPTION OF PROCEDURE: After obtaining informed consent, the patient was taken to the operating room, induced under general endotracheal anesthetic. The patient was prepped and draped in the usual fashion of the groin area in a high lithotomy position. There was no evidence of other obvious pathology in the area, but a nodule in the left posterior groin was identified in the perineal left buttock area approximately 2 cm nodule with a draining sinus of purulent debris. An elliptical incision was made around this including the entire complex. This was taken down through subcutaneous tissues using electrocautery. The nodule was excised and sent to Pathology for evaluation. Cultures were obtained. Digital debridement was then performed. Did appear to have a sinus tracking anteriorly. A counter incision was made in this area and home drain was brought through this and secured in place using a 3-0 Vicryl stitch. The wound was then packed with iodoform gauze. After obtaining hemostasis with electrocautery, sterile dressing was placed over this. The patient tolerated the procedure well and was discharged to Recovery Room in stable condition. All counts were correct. There were no immediate complications. PETER CARTER MD DR: ABI/dipika JOB#: [id number] / [id number] SHERICE Palomino MD [facility]
[2016-09-12] MEDS: SENNOSIDES/DOCUSATE 8.6/50MG TABLET. PO SCH (21:00)
[2016-09-13] MEDS: HYDROmorphone 2 MG/ML VIAL IVP PRN ×3 (02:06→11:25)
[2016-09-13 02:54] VITALS: BP 109/42
[2016-09-13] MEDS: CLINDAMYCIN 600MG PREMIX 50 ML IV SCH ×3 (05:40→14:20)
[2016-09-13 07:59] VITALS: BP 169/76
[2016-09-13] MEDS: SENNOSIDES/DOCUSATE 8.6/50MG TABLET. PO SCH (08:07)
[2016-09-13 10:52] VITALS: BP 151/62
[2016-09-13] MEDS ORDERED: HYDR-2758 PO (12:42)
[2016-09-13] MEDS ORDERED: CLIN300C8 PO (12:42)
[2016-09-13] MEDS ORDERED: LORA0.5T96 PO (12:42)
--- NOTE | 2016-09-13 13:03 | PDOC ---
SURGICAL PROGRESS NOTE Subjective tolerating diet pain at wound d/w Adia, wound care at home Vital Signs Vital Signs Date Time Temp Pulse Resp B/P (MAP) Pulse Ox O2 Delivery O2 Flow Rate FiO2 09/13/16 11:48 Room Air 09/13/16 10:52 97.7 111 21 151/62 (91) 99 97.7 09/12/16 16:14 2.0 I&O Intake and Output 09/13/16 06:59 Intake Total 2000 ml Balance 2000 ml Intake Oral 1000 ml IV Total 1000 ml # Voids 7 # Bowel Movements 1 General: Alert, Oriented X3, Cooperative, No acute distress Skin: Other (thigh, perineal--wound clean, packing in place, no active bleeding on exam, home drain in place) Problem List Problems Medical Problems: (1) Cellulitis of left thigh Status: Acute Assessment/Plan s/p I&D wound care, FU next week for drain removal Problems: PRABHAKAR OMALLEY APRN Sep 13, 2016 13:03
[2016-09-13] MEDS: HYDROcodone/APAP 5/325MG 1 TAB TABLET PO PRN ×2 (13:30→17:29)
--- NOTE | 2016-09-13 14:36 | PDOC3 ---
Discharge Summary Visit Information Date of Admission: Sep 10, 2016 Date of Discharge: Sep 13, 2016 Admitting Diagnosis: groin abcess Final Diagnosis groin abcess, minimal in size, unable to be lanced in the ER early cellulitis of groin area, obesity, BMI 39 tobaccoism, anxiety d/o Problems Medical Problems: (1) Cellulitis of left thigh Status: Acute Brief Hospital Course Allergies Allergies Coded Allergies Type Severity Reaction Last Updated Verified morphine Allergy Severe "freak out' 09/12/16 Yes Vital Signs Vital Signs Date Time Temp Pulse Resp B/P (MAP) Pulse Ox O2 Delivery O2 Flow Rate FiO2 09/13/16 14:22 Room Air 09/13/16 13:30 99 2.0 09/13/16 10:52 97.7 111 21 151/62 (91) 97.7 Brief Hospital Course Ms. Santo is a 25 old female,w tih hidranitis suppurtiva, admit for groin pain and small lesions ] to OR 09/[address] Miller, drain placed, cont wound care, supplies given for at home cont pain control as able Discharge Information Condition at Discharge: Improved Follow Up: Weeks Disposition/Orders: D/C to Home Scheduled Clindamycin Hcl (Clindamycin Hcl), 2 CAP PO TID Scheduled PRN Hydrocodone Bit/Acetaminophen (Hydrocodone-Apap 5-325 ), 2 TAB PO Q4HRS PRN for pain Lorazepam (Ativan), 0.5 MG PO BID PRN for ANXIETY Patient Instructions Patient Instructions f/u [facility] drain removal at Surg clinic next week keith e> 30min JARRETT BACK MD Sep 13, 2016 14:36
[2016-09-13] MEDS ORDERED: HYDROcodone/APAP 5/325MG 1 TAB TABLET PO PRN (14:45)
--- NOTE | 2016-09-14 13:26 | PATHOLOGY ---
PATHOLOGY REPORT * * * * * * * * FINAL DIAGNOSIS: Skin and cutaneous tissue, left buttocks debridement: - Follicular cyst, infundibular type, ruptured, with abscess formation. COMMENT: There is no evidence of malignancy. REPORT ELECTRONICALLY SIGNED BY: Gerson Brown M.D. DATE/TIME: 09/14/2016 13:25 * * * * * * * * GROSS PATHOLOGY: The specimen is received in formalin labeled "Troy Santo left buttocks". Received is an ellipse of pale mejias, shaggy skin with attached yellow-mejias fibroadipose tissue measuring 2.6 x 1.8 x 1.5 cm in greatest dimensions. Sectioning reveals yellow-mejias to dusky self-mejias cut surfaces. No distinct nodules or lesions are noted grossly. The specimen is submitted representatively in cassette A1. (CAA; 09/13/2016) INITIAL CPT CODE(S): A; 78410 Professional services [place] [facility] [address] Technical services performed by [facility] at [address] [place] [address]. SPECIMEN(S) RECEIVED: A.Debridement left buttocks CLINICAL HISTORY: Left buttock abscess PATIENT: TROY SANTO /AGE: 7 1990 (Age: 25) PATIENT #: [id number] ALT CASE #: SPECIMEN COLLECTION DATE: 09/12/2016 SPECIMEN RECEIVED DATE: 09/12/2016 [facility] - [address] [place] [address] - PHONE: [phone] * * * END OF REPORT * * *
== END 2016-09-13 19:10 | disposition home or self-care (01) | DRG 571 ==
LOC: ER 10:05 → 6 SOUTH 12:44
PROVIDERS: ADMIT Internal Medicine; ATTEND Internal Medicine
PROC: 0JB90ZZ Excision of Buttock Subcutaneous Tissue and Fascia, Open Approach (ICD-10-PCS; principal; 2016-09-12 13:00)
DX: L03.314 Cellulitis of groin (principal); L03.116 Cellulitis of left lower limb; E66.9 Obesity, unspecified; Z68.39 Body mass index [BMI] 39.0-39.9, adult; L73.2 Hidradenitis suppurativa; F17.210 Nicotine dependence, cigarettes, uncomplicated; F41.9 Anxiety disorder, unspecified; L02.214 Cutaneous abscess of groin; Z90.49 Acquired absence of other specified parts of digestive tract; Z88.5 Allergy status to narcotic agent
CPT/HCPCS: 10060; 36415; 76882; 80048; 80053; 84703; 85027; 87071; 87075; 87205; 88304; 96365; J1100; J1170; J2060; J2370; J2405; J2704; J3010; J3490; J7120; 99285-25

== ENCOUNTER 2016-09-17 14:32 | Emergency (ER) | payer SELFPAY ==
[~2016-09-17] VITALS: Ht 182.9 cm; Wt 148.3 kg
[~2016-09-17 14:32] MED LIST: CLIN300C8 PO; HYDR-2758 PO; LORA0.5T96 PO
[2016-09-17 15:30] VITALS: BP 106/53
[2016-09-17] MEDS ORDERED: LIDO:MAALOX:DONNATAL 1:1:1 15 ML SINGLE DOSE SWSW ONE (15:30)
[2016-09-17] MEDS ORDERED: ONDANSETRON ODT 4 MG TAB.RAPDIS. PO ONE (15:30)
--- NOTE | 2016-09-17 15:34 | PHYS DOC ---
Past Medical History Past Medical History: Anxiety, Bipolar Additional Past Medical Histor: PTSD, borderline personality, ADD Past Surgical History: Appendectomy, Other Additional Past Surgical Histo: I&D Alcohol Use: Occasionally Drug Use: Marijuana Adult General Chief Complaint Chief Complaint: WOUND CHECK [facility] HPI Patient is a 25 year old female POD 5 from left groin abscess/fistula I&D who presents for wound evaluation since she could not get into wound care clinic today due to financial reasons. She notes no spreading of redness or worsening of pain. Does have some intermittent light green discharge from wound site. State she has some nausea and chills since procedure and starting medications. She denies emesis, diarrhea, constipation, measured fever. Is taking all medications, sometimes without food. Review of Systems Review of Systems Constitutional: Denies fever [] Eyes: Denies change in visual acuity, redness, or eye pain [] HENT: Denies nasal congestion or sore throat [] Respiratory: Denies cough or shortness of breath [] Cardiovascular: No additional information not addressed in HPI [] GI: Denies abdominal pain, vomiting, bloody stools or diarrhea [] : Denies dysuria or hematuria [] Musculoskeletal: Denies back pain or joint pain [] Integument: Denies rash [] Neurologic: Denies headache, focal weakness or sensory changes [] Endocrine: Denies polyuria or polydipsia [] Current Medications Current Medications Current Medications Medications (Trade) Dose Ordered Sig/Franky Start Time Stop Time Status Last Admin Dose Admin Multi-Ingredient Mouthwash/Gargle (Gi Cocktail Single Dose) 15 ml 1X ONCE 09/17/16 15:30 09/17/16 15:31 DC 09/17/16 15:24 15 ML Ondansetron HCl (Zofran Odt) 4 mg 1X ONCE 09/17/16 15:30 09/17/16 15:31 DC 09/17/16 15:24 4 MG Allergies Allergies Allergies Coded Allergies Type Severity Reaction Last Updated Verified morphine Allergy Severe "freak out' 09/12/16 Yes Physical Exam Physical Exam Constitutional: Well developed, well nourished, no acute distress, non-toxic appearance. [] HENT: Normocephalic, atraumatic, bilateral external ears normal, oropharynx moist, nose normal. [] Eyes: PERRLA, EOMI. [] Neck: Normal range of motion, supple. [] Cardiovascular:Heart rate regular rhythm [] Lungs & Thorax: Bilateral breath sounds clear to auscultation [] Abdomen: Bowel sounds normal, soft, no tenderness. [] Skin: Warm, dry, no erythema, no rash. [] Back: Normal ROM. [] Extremities: ROM intact, no edema. Left groin with [place] drain in place, has surrounding rubor, no fluctuance, no crepitance, no active drainage, no drainage expressed [] Neurologic: Alert and oriented X 3, normal motor function, normal sensory function, no focal deficits noted. [] Psychologic: Affect normal, judgement normal, mood normal. [] Current Patient Data Vital Signs Vital Signs Date Time Temp Pulse Resp B/P (MAP) Pulse Ox O2 Delivery O2 Flow Rate FiO2 09/17/16 14:52 98.7 114 22 127/55 (79) 97 Room Air 98.7 Course & Med Decision Making Course & Med Decision Making Pertinent Labs and Imaging studies reviewed. (See chart for details) Discussed symptoms are most likely related to medication side effects and drainage is therapeutic. Discussed symptomatic management. She understands and agrees with plan. She will follow up with general surgery clinic as planned. Dragon Disclaimer Dragon Disclaimer This electronic medical record was generated, in whole or in part, using a voice recognition dictation system. Departure Departure Impression: Primary Impression: Groin abscess Additional Impression: Nausea Disposition: 01 HOME, SELF-CARE Condition: STABLE Referrals: NO PCP (PCP) HANSEL CARTER MD Patient Instructions: Incision and Drainage, Care After Additional Instructions: Take promethazine as needed for nausea. Otherwise, continue your current medications. Follow-up with general surgery clinic. Return for any concerns. Scripts Promethazine Hcl (PROMETHAZINE HCL) 12.5 Mg Tablet 1 TAB PO Q6-8HRS Y for NAUSEA, #20 TAB 0 Refills Prov: Alicia FARMER MD 09/17/16 Problem Qualifiers Alicia FARMER MD Sep 17, 2016 15:34
[2016-09-17] MEDS ORDERED: PROM12.56 PO (15:41)
== END 2016-09-17 16:02 | disposition home or self-care (01) ==
LOC: ER 14:32
DX: L02.214 Cutaneous abscess of groin (principal); R11.0 Nausea; F41.9 Anxiety disorder, unspecified; F31.9 Bipolar disorder, unspecified; F43.10 Post-traumatic stress disorder, unspecified; F98.8 Other specified behavioral and emotional disorders with onset usually occurring in childhood and adolescence; F12.10 Cannabis abuse, uncomplicated; Z90.49 Acquired absence of other specified parts of digestive tract; Z88.5 Allergy status to narcotic agent
CPT/HCPCS: 99283; Q0162

== ENCOUNTER 2017-02-21 19:49 | Emergency (ER) | payer SELFPAY ==
[~2017-02-21] VITALS: Ht 185.4 cm; Wt 140.6 kg
[~2017-02-21 19:49] MED LIST changes: +PROM12.56 PO
[2017-02-21 20:08] VITALS: BP 106/53
[2017-02-21] MEDS ORDERED: SULF1TAB24 PO (20:30)
[2017-02-21] MEDS ORDERED: NAPR500T PO (20:30)
[2017-02-21] MEDS ORDERED: LIDOCAINE 1% PF 2 ML VIAL. INJ ONE (20:30)
--- NOTE | 2017-02-21 20:30 | PHYS DOC ---
Past Medical History Past Medical History: Anxiety, Bipolar Additional Past Medical Histor: PTSD, borderline personality, ADD, multiple abscesses Past Surgical History: Appendectomy, Other Additional Past Surgical Histo: I&D Alcohol Use: Occasionally Drug Use: Marijuana Adult General Chief Complaint Chief Complaint: ABSCESS [facility] HPI Patient is a 26 year old obese female with complaints of abscess to the medial thighs. Patient states they are recurrent since . She has a history of hydradenitis. She states these abscesses have been present for 2-3 weeks but she "could come to the hospital today because she is not watching children". Review of Systems Review of Systems Constitutional: Denies fever or chills [] Eyes: Denies change in visual acuity, redness, or eye pain [] HENT: Denies nasal congestion or sore throat [] Respiratory: Denies cough or shortness of breath [] Cardiovascular: No additional information not addressed in HPI [] GI: Denies abdominal pain, nausea, vomiting, bloody stools or diarrhea [] : Denies dysuria or hematuria [] Musculoskeletal: Denies back pain or joint pain [] Integument: abscess Neurologic: Denies headache, focal weakness or sensory changes [] Endocrine: Denies polyuria or polydipsia [] All other systems were reviewed and found to be within normal limits, except as documented in this note. Current Medications Current Medications Current Medications Medications (Trade) Dose Ordered Sig/Franky Start Time Stop Time Status Last Admin Dose Admin Lidocaine HCl (Xylocaine-Mpf 1% Vial) 2 ml 1X ONCE 02/21/17 20:30 02/21/17 20:31 Allergies Allergies Allergies Coded Allergies Type Severity Reaction Last Updated Verified morphine Allergy Severe "freak out' 09/12/16 Yes Physical Exam Physical Exam Constitutional: Well developed, well nourished, no acute distress, non-toxic appearance. [] Neck: Normal range of motion, no tenderness, supple, no stridor. [] Cardiovascular:Heart rate regular rhythm, no murmur [] Lungs & Thorax: Bilateral breath sounds clear to auscultation [] Skin: Warm, dry, no erythema, no rash. Left medial thigh 2 cm raised fluctuant area surrounding skin is erythematous without induration. Right medial thigh has a 3 cm area of induration without fluctuance.[] Current Patient Data Vital Signs Vital Signs Date Time Temp Pulse Resp B/P (MAP) Pulse Ox O2 Delivery O2 Flow Rate FiO2 02/21/17 20:08 99.2 107 18 100 Room Air 99.2 EKG EKG [] Radiology/Procedures Radiology/Procedures [] Course & Med Decision Making Course & Med Decision Making Procedure note: Left medial thigh abscess lanced with Betadine, anesthetized with 1% lidocaine 1 mL. A #11 blade utilize to incise the abscess, moderate amount of purulent discharge. I advised the patient the right medial thigh area of induration did not require incision and drainage however she demanded that I I&D the tissue. The area was cleansed with Betadine, anesthetized with 1% lidocaine 1 mL. A #11 blade used to incise the induration for no purulent discharge. Small amount of bleeding. Dressings applied bilateral incisions. Patient tolerated well. Patient will be discharged home with Bactrim and Naprosyn. She is to follow-up with Gen. surgery. Pertinent Labs and Imaging studies reviewed. (See chart for details) [] Dragon Disclaimer Dragon Disclaimer This electronic medical record was generated, in whole or in part, using a voice recognition dictation system. Departure Departure Impression: Primary Impression: Abscess Disposition: 01 HOME, SELF-CARE Condition: STABLE Referrals: NO PCP (PCP) [facility] Patient Instructions: Abscess Scripts Naproxen (NAPROSYN) 500 Mg Tablet 500 MG PO BID Y for PAIN, #20 TAB Prov: ALBERTO TS APRN 02/21/17 Sulfamethoxazole/Trimethoprim (BACTRIM DS TABLET) 1 Each Tablet 1 TAB PO BID, #20 TAB Prov: ALBERTO ST APRN 02/21/[address] APRN Feb 21, 2017 20:30
== END 2017-02-21 20:40 | disposition home or self-care (01) ==
LOC: ER 19:49
DX: L02.416 Cutaneous abscess of left lower limb (principal); L02.415 Cutaneous abscess of right lower limb; F31.9 Bipolar disorder, unspecified; F43.10 Post-traumatic stress disorder, unspecified; Z88.5 Allergy status to narcotic agent
CPT/HCPCS: 10061; 99284-25